=== PATIENT | female | born 1995 | race Two or more races ===

== ENCOUNTER 2024-01-23 01:30 | Emergency (ER) | payer OTHER ==
[~2024-01-23] VITALS: Ht 165.1 cm; Wt 81.8 kg
[2024-01-23 01:40] VITALS: TEMP 98.3
[2024-01-23 03:50] VITALS: BP 132/81; PULSE 76; RESP 16; O2SAT 98
== END 2024-01-23 03:53 ==
LOC: EMS 01:36
DX: F41.9 Anxiety disorder, unspecified (principal); R45.851 Suicidal ideations; F32.A Depression, unspecified; Z88.4 Allergy status to anesthetic agent
CPT/HCPCS: 99283; Z7502